=== PATIENT | female | born 1995 | race Caucasian/White ===

== ENCOUNTER 2017-11-03 08:22 | Emergency (ER) | payer MEDICAID ==
[~2017-11-03] VITALS: Ht 165.1 cm; Wt 913.3 kg
[2017-11-03 08:23] VITALS: Ht 165.1 cm; Wt 913.3 kg
[2017-11-03 10:21] VITALS: BP 118/74
== END 2017-11-03 10:21 | disposition home or self-care (01) ==
LOC: ED 08:22
DX: J06.9 Acute upper respiratory infection, unspecified (principal); J30.9 Allergic rhinitis, unspecified; Z90.49 Acquired absence of other specified parts of digestive tract; F17.200 Nicotine dependence, unspecified, uncomplicated
CPT/HCPCS: 87804; Q0092

== ENCOUNTER 2017-11-26 10:01 | Emergency (ER) | payer MEDICAID ==
[~2017-11-26] VITALS: Ht 162.6 cm; Wt 91.6 kg
[2017-11-26 10:10] VITALS: Ht 162.6 cm; Wt 91.6 kg
[2017-11-26 10:58] VITALS: BP 112/83
== END 2017-11-26 10:58 | disposition home or self-care (01) ==
LOC: ED 10:01
DX: L01.00 Impetigo, unspecified (principal); Z90.49 Acquired absence of other specified parts of digestive tract

== ENCOUNTER 2018-04-10 10:16 | Emergency (ER) | payer MEDICAID ==
[~2018-04-10] VITALS: Ht 172.7 cm; Wt 98.9 kg
[2018-04-10 10:20] VITALS: BP 124/78; Ht 172.7 cm; Wt 98.9 kg
== END 2018-04-10 13:13 | disposition left against medical advice (07) ==
LOC: ED 10:16
DX: Z53.21 Procedure and treatment not carried out due to patient leaving prior to being seen by health care provider (principal)

== ENCOUNTER 2018-04-14 07:54 | Emergency (ER) | payer MEDICAID ==
[~2018-04-14] VITALS: Ht 167.6 cm; Wt 98.0 kg
[2018-04-14 07:58] VITALS: Ht 167.6 cm; Wt 98.0 kg
[2018-04-14 09:17] VITALS: BP 127/88
== END 2018-04-14 09:17 | disposition home or self-care (01) ==
LOC: ED 07:54
DX: M54.5 Low back pain (principal); R21 Rash and other nonspecific skin eruption

== ENCOUNTER 2018-06-23 00:06 | Emergency (ER) | payer MEDICAID ==
[~2018-06-23] VITALS: Ht 162.6 cm; Wt 99.8 kg
[2018-06-23 00:13] VITALS: BP 130/97; Ht 162.6 cm; Wt 99.8 kg
== END 2018-06-23 00:44 | disposition home or self-care (01) ==
LOC: ED 00:06
DX: J18.8 Other pneumonia, unspecified organism (principal); F41.9 Anxiety disorder, unspecified; R03.0 Elevated blood-pressure reading, without diagnosis of hypertension

== ENCOUNTER 2018-06-24 23:25 | Emergency (ER) | payer MEDICAID ==
[~2018-06-24] VITALS: Ht 162.6 cm; Wt 99.8 kg
[2018-06-24 23:27] VITALS: Ht 162.6 cm; Wt 99.8 kg
[2018-06-25 00:48] VITALS: BP 118/76
== END 2018-06-25 00:48 | disposition home or self-care (01) ==
LOC: ED 23:25
DX: J20.9 Acute bronchitis, unspecified (principal); F41.9 Anxiety disorder, unspecified; F17.210 Nicotine dependence, cigarettes, uncomplicated; Z90.49 Acquired absence of other specified parts of digestive tract
CPT/HCPCS: J7620

== ENCOUNTER 2018-12-08 18:11 | Emergency (ER) | payer MEDICAID ==
[~2018-12-08] VITALS: Ht 162.6 cm; Wt 91.2 kg
[2018-12-08 18:28] VITALS: Ht 162.6 cm; Wt 91.2 kg
[2018-12-08 19:25] LABS: BASOPHIL % 0.6 % (0-2); PLATELET COUNT 277 x10^3mcL (130-400); RED CELL DISTRIBUTION WIDTH 12.6 % (11.5-14.5)
[2018-12-08 19:48] LABS: microscopic required? NO
[2018-12-08 19:53] LABS: UA SPECIFIC GRAVITY <=1.005 (1.005-1.035); urine erythrocyte NEGATIVE (NEGATIVE)
[2018-12-08 22:52] VITALS: BP 132/77
== END 2018-12-08 22:52 | disposition home or self-care (01) ==
LOC: ED 18:11
PROVIDERS: Emergency Medicine
DX: R10.31 Right lower quadrant pain (principal); Z90.49 Acquired absence of other specified parts of digestive tract
CPT/HCPCS: 36415; J1885; Q0162

== ENCOUNTER 2019-09-08 13:15 | Emergency (ER) | payer MEDICAID ==
[~2019-09-08] VITALS: Ht 165.1 cm; Wt 78.2 kg
[2019-09-08 14:12] VITALS: BP 110/65; Ht 165.1 cm; Wt 78.2 kg
== END 2019-09-08 15:21 | disposition left against medical advice (07) ==
LOC: ED 13:15
DX: Z53.21 Procedure and treatment not carried out due to patient leaving prior to being seen by health care provider (principal)

== ENCOUNTER 2019-10-10 15:47 | Emergency (ER) | payer MEDICAID ==
[~2019-10-10] VITALS: Ht 165.1 cm; Wt 78.0 kg
[2019-10-10 15:51] VITALS: Ht 165.1 cm; Wt 78.0 kg
[2019-10-10 17:29] VITALS: BP 120/71
== END 2019-10-10 17:29 | disposition home or self-care (01) ==
LOC: ED 15:47
DX: L03.211 Cellulitis of face (principal); Z90.49 Acquired absence of other specified parts of digestive tract

== ENCOUNTER 2020-01-19 14:56 | Emergency (ER) | payer MEDICAID ==
[~2020-01-19] VITALS: Ht 165.1 cm; Wt 73.9 kg
[2020-01-19 15:19] VITALS: Ht 165.1 cm; Wt 73.9 kg
[2020-01-19 16:15] VITALS: BP 116/67
== END 2020-01-19 16:15 | disposition home or self-care (01) ==
LOC: ED 14:56
DX: L30.9 Dermatitis, unspecified (principal)

== ENCOUNTER 2020-03-21 12:35 | Emergency (ER) | payer MEDICAID ==
[~2020-03-21] VITALS: Ht 165.1 cm; Wt 71.7 kg
[2020-03-21 12:40] VITALS: Ht 165.1 cm; Wt 71.7 kg
[2020-03-21 13:41] VITALS: BP 109/59
== END 2020-03-21 13:41 | disposition home or self-care (01) ==
LOC: ED 12:35
DX: L30.9 Dermatitis, unspecified (principal)

== ENCOUNTER 2020-08-12 21:43 | Emergency (ER) | payer MEDICAID ==
[~2020-08-12] VITALS: Ht 165.1 cm; Wt 75.7 kg
[2020-08-12 22:00] VITALS: Ht 165.1 cm; Wt 75.7 kg
[2020-08-13 00:50] VITALS: BP 103/74
== END 2020-08-13 00:50 | disposition home or self-care (01) ==
LOC: ED 21:43
DX: L30.9 Dermatitis, unspecified (principal)

== ENCOUNTER 2020-09-11 08:29 | Emergency (ER) | payer MEDICAID ==
[~2020-09-11] VITALS: Ht 165.1 cm; Wt 76.2 kg
[2020-09-11 09:01] VITALS: BP 116/71; Ht 165.1 cm; Wt 76.2 kg
== END 2020-09-11 09:20 | disposition home or self-care (01) ==
LOC: ED 08:29
DX: L30.9 Dermatitis, unspecified (principal)

== ENCOUNTER 2020-11-10 10:44 | Emergency (ER) | payer MEDICAID ==
[~2020-11-10] VITALS: Ht 165.1 cm; Wt 71.2 kg
[2020-11-10 10:50] VITALS: BP 123/79; Ht 165.1 cm; Wt 71.2 kg
[2020-11-10] MEDS ORDERED: KEF500 PO (11:12)
[2020-11-10] MEDS ORDERED: PYR100 PO (11:15)
[2020-11-10] MEDS ORDERED: ZOFRAN4 M3 PO (11:16)
[2020-11-10 12:19] LABS: UA SPECIFIC GRAVITY >=1.030 (1.005-1.035); urine erythrocyte 3+ (NEGATIVE)
[2020-11-10 12:24] LABS: microscopic required? YES
== END 2020-11-10 11:46 | disposition home or self-care (01) ==
LOC: ED 10:44
PROVIDERS: Emergency Medicine
DX: N39.0 Urinary tract infection, site not specified (principal)